=== PATIENT | female | born 1960 | race Caucasian/White ===

== ENCOUNTER 2018-09-28 06:52 | Day surgery (SDC) | payer OTHER ==
[~2018-09-28 06:52] MED LIST: BL ASPIRIN325 MG PO; CARVEDILOL12.5 MG PO; CLOPIDOGREL75 MG PO; FLEXERIL PO; LIPITOR80 M1 PO; LISINOPRIL5 MG PO; LORTAB 5 PO; METFORMIN HCL1000 MG PO; METFORMIN500 M2 PO; NAPROSYN500 MG OR; NAPROSYN500 MG PO; PROTONIX40 M2 PO; SG ASA LOW81 M1 PO; ZESTRIL10 M1 PO
[2018-09-28 08:41] VITALS: BP 144/75
== END 2018-09-28 08:50 | disposition home or self-care (01) | DRG 951 ==
LOC: ENDO 06:52
PROVIDERS: ATTEND Surgery
PROC: 0DJD8ZZ Inspection of Lower Intestinal Tract, Via Natural or Artificial Opening Endoscopic (ICD-10-PCS; principal; 2018-09-28)
DX: Z12.11 Encounter for screening for malignant neoplasm of colon (principal); K57.30 Diverticulosis of large intestine without perforation or abscess without bleeding; I25.10 Atherosclerotic heart disease of native coronary artery without angina pectoris; E11.9 Type 2 diabetes mellitus without complications; I10 Essential (primary) hypertension

== ENCOUNTER 2020-12-26 12:53 | Observation (INO) | payer OTHER ==
[~2020-12-26] VITALS: Ht 170.2 cm; Wt 86.0 kg
--- NOTE | 2020-12-26 14:00 | NUR ---
PATIENT FOUNDING SITTING ON SIDE OF BED, TALKING ON HER CELL PHONE. DENIES ANY NEEDS CURRENTLY.
[2020-12-26 14:14] LABS: HEMATOCRIT 35.1 % (37.0-47.0); IMMATURE GRANULOCYTES 0.5 % (0.0-5.0); MEAN CELL VOLUME 88.6 fL CALC (80.0-100.0); MEAN CORPUSCULAR HGB 27.8 pG CALC (26.0-32.0); MEAN CORPUSCULAR HGB CONC 31.3 g/dL CAL (32.0-36.0); NEUT# 4.74 thou/uL (2.00-7.15); RED BLOOD COUNT 3.96 mill/uL (4.20-5.60); RED CELL DISTRI WIDTH 13.3 % (11.5-15.5)
[2020-12-26 14:15] LABS: ALKALINE PHOSPHATASE 59 u/l (38-126); AMYLASE 46 u/l (30-110); ANION GAP 15 (6-22 (CALC)); BILIRUBIN, TOTAL 0.2 mg/dL (0.0-1.4); BUN 10 mg/dL (7-17); BUN/CREATININE RATIO 15 (12-20 (CALC)); CARBON DIOXIDE 21 mmol/l (22-30); CHLORIDE 104 mmol/l (95-108); CREATININE 0.7 mg/dL (0.5-1.0); GFR > 60 ML/MIN (>=60 (CALC)); GFR FOR AFR.AMER. > 60 ML/MIN (>=60 (CALC)); LIPASE 93 u/l (23-300); POTASSIUM 3.7 mmol/l (3.5-5.1); SGOT/AST 40 u/l (14-36); SODIUM 137 mmol/l (137-146); TOTAL PROTEIN 6.9 g/dL (6.3-8.2)
[2020-12-26 14:37] LABS: URINE BILIRUBIN - DIPSTICK NEGATIVE (NEGATIVE); URINE BLOOD DIPSTICK NEGATIVE (NEGATIVE); URINE COLOR YELLOW; URINE GLUCOSE - DIPSTICK NEGATIVE (NEGATIVE); URINE KETONE NEGATIVE (NEGATIVE); URINE LEUK ESTERASE NEGATIVE (NEGATIVE); URINE PROTEIN - DIPSTICK NEGATIVE (NEG-TRACE); URINE SPECIFIC GRAVITY <=1.005; URINE UROBILINOGEN - DIPSTICK 0.2 E.U./dL (0.2)
[2020-12-26 14:41] LABS: URINE NITRITE - DIPSTICK NEGATIVE (Negative)
--- NOTE | 2020-12-26 16:50 | NUR ---
PATIENT FOUND SITTING BEDSIDE, STATES SHE DOSE NOT WANT TO BE IN THE BED, SHE WANTS TO GO HOME. PATIENT ASKED TO DISCUSSE WITH ED PHYSICIAN PRIOR TO SIGNING AMA FORM
--- NOTE | 2020-12-26 17:10 | NUR ---
AT THIS TIME PATIENT AGREES TO ADMISSION.
--- NOTE | 2020-12-26 18:32 | NUR ---
RECIEVED REPORT FROM ROMI SILVA
--- NOTE | 2020-12-26 18:33 | NUR ---
REPORT CALLED TO FLOOR
[2020-12-26 18:44] VITALS: BP 120/62
--- NOTE | 2020-12-26 20:00 | NUR ---
RECEIVED PATIENT TO ROOM 267 VIA W/C FROM THE ED IN STABLE CONDITION. ON TELEMETRY. RESPIRATIONS NONLABORED. ON TELEMETRY. ORIENTED TO ROOM AND CALL LIGHT SYSTEM. IVF INITIATED. ADMISSION COMPLETED AND CHARTED. BED IN LOW POSITION. CALL LIGHT WITHIN REACH.
[2020-12-27] VITALS: BP 121/66
--- NOTE | 2020-12-27 02:09 | NUR ---
NO CHANGES EXCEPT BACK/SHOULDER PAIN GONE. PAIN 0/10. BED IN LOW POSITION. CALL LIGHT WITHIN REACH.
[2020-12-27 04:00] VITALS: BP 107/55
--- NOTE | 2020-12-27 04:33 | NUR ---
RESTING QUIETLY. NO PAIN. RESPIRATIONS NONLABORED. FALL PRECAUTIONS MAINTAINED.
[2020-12-27 06:21] LABS: HEMATOCRIT 32.3 % (37.0-47.0); HEMOGLOBIN 10.2 g/dl (12.0-16.0); MEAN CELL VOLUME 89.7 fL CALC (80.0-100.0); MEAN CORPUSCULAR HGB 28.3 pG CALC (26.0-32.0); MEAN CORPUSCULAR HGB CONC 31.6 g/dL CAL (32.0-36.0); RED BLOOD COUNT 3.6 mill/uL (4.20-5.60); RED CELL DISTRI WIDTH 13.5 % (11.5-15.5)
[2020-12-27 06:35] LABS: ANION GAP 10 (6-22 (CALC)); BUN 10 mg/dL (7-17); BUN/CREATININE RATIO 15 (12-20 (CALC)); CALCULATED LDLCHOLESTEROL 89 mg/dL (62-129 (CALC)); CARBON DIOXIDE 24 mmol/l (22-30); CHLORIDE 109 mmol/l (95-108); CHOLESTEROL HDL RATIO 4.5 (<4.4 (CALC)); CREATININE 0.7 mg/dL (0.5-1.0); GFR > 60 ML/MIN (>=60 (CALC)); GFR FOR AFR.AMER. > 60 ML/MIN (>=60 (CALC)); HDL CHOLESTEROL 35 mg/dL (>=40); MAGNESIUM 1.8 mg/dL (1.6-2.3); POTASSIUM 4.1 mmol/l (3.5-5.1); SODIUM 139 mmol/l (137-146); TOTAL CHOLESTEROL 157 mg/dl (0-199); TOTAL TRIGLYCERIDES 168 mg/dl (30-149); VLDL CHOLESTROL 34 mg/dl (2-49 (CALC))
--- NOTE | 2020-12-27 07:00 | NUR ---
RECIEVED REPORT FROM ROMI BARRAGAN
[2020-12-27 07:59] VITALS: BP 126/65
--- NOTE | 2020-12-27 07:59 | NUR ---
PT RESTING IN SEMI FOWLERS POSITION. PT IS A/O X3. ASSESSMENT AND VITALS COMPLETED. BP 126/65, HR 65, O2 99% ON ROOM AIR. RESPIRATIONS ARE EVEN AND UNLABORED WITH NO DISTRESS NOTED. LUNG SOUNDS ARE CLEAR. HEART RHYTHM IS NORMAL WITH TELE IN PLACE, SR PER ER MONITORING. BOWEL SOUNDS ARE ACTIVE. RADIAL AND PEDAL PULSES STRONG. #20G LAC INFUSING WITH IVF PER ORDER, SITE REMAINS HEALTHY AND PATENT. SKIN INTACT. PT DENIES OF ANY PAINS OR DISCOMFORTS AT THIS TIME. ALL SAFETY PRECAUTIONS ARE IN PLACE WITH CALL LIGHT IN REACH. WILL CONTINUE TO MONITOR.
--- NOTE | 2020-12-27 09:40 | NUR ---
DR DENNEY AT BEDSIDE
--- NOTE | 2020-12-27 09:55 | NUR ---
PT TRANSFERED TO CT VIA WHEELCHAIR IN STABLE CONDITON ACCOMPAINED BY [facility] STAFF
--- NOTE | 2020-12-27 10:10 | NUR ---
PT BACK TO ROOM 267 INSTABLE CONDITION. PT ASSISTED BACK INTO BED. PT INFORMED OF POSSIBLE DC
[2020-12-27 11:13] VITALS: BP 126/69
--- NOTE | 2020-12-27 12:16 | NUR ---
PT EDUCATED ON DC INSTRUCTIONS. PT VERBALZIED UNDERSTANDING. IV REMOVED WITH CATH STILL INTACT. TRANSPORTATION CALLED.
--- NOTE | 2020-12-27 12:38 | NUR ---
Discharge instructions given. Patient verbalizes understanding of same. Discharged in stable condition via Wheelchair to Home with staff. All belongings sent with pt. PT DC HOME IN STABLE CONDITION VIA WHEELCHAIR ACCOMPAINED BY PENNY KENYON WITH ALL BELONGINGS AND HOME MEDICATIONS.
== END 2020-12-27 12:39 | disposition home or self-care (01) | DRG 313 ==
LOC: ED 12:53 → ED-I 16:40 → ED 17:04 → MS2 17:05
PROVIDERS: Family Medicine; Nurse Practitioner; ADMIT Internal Medicine; ATTEND Internal Medicine
DX: R07.9 Chest pain, unspecified (principal); I25.10 Atherosclerotic heart disease of native coronary artery without angina pectoris; I10 Essential (primary) hypertension; E78.5 Hyperlipidemia, unspecified; K21.9 Gastro-esophageal reflux disease without esophagitis; I25.2 Old myocardial infarction; F17.200 Nicotine dependence, unspecified, uncomplicated; T46.3X6A Underdosing of coronary vasodilators, initial encounter; Z91.128 Patient's intentional underdosing of medication regimen for other reason; Z79.02 Long term (current) use of antithrombotics/antiplatelets; Z95.5 Presence of coronary angioplasty implant and graft; Z82.49 Family history of ischemic heart disease and other diseases of the circulatory system; Z79.82 Long term (current) use of aspirin; Z20.822 Contact with and (suspected) exposure to COVID-19
CPT/HCPCS: G0378; J1650; Q9967

== ENCOUNTER 2021-06-01 11:43 | Emergency (ER) | payer OTHER ==
[~2021-06-01] VITALS: Ht 170.2 cm; Wt 85.0 kg
[2021-06-01] MEDS ORDERED: FENOFIBRATE145 MG PO (12:01)
[2021-06-01] MEDS ORDERED: METFORMIN HCL1000 MG PO (12:03)
[2021-06-01 12:14] LABS: HEMATOCRIT 38.3 % (37.0-47.0); HEMOGLOBIN 12.5 g/dl (12.0-16.0); IMMATURE GRANULOCYTES 0.4 % (0.0-5.0); MEAN CELL VOLUME 85.5 fL CALC (80.0-100.0); MEAN CORPUSCULAR HGB 27.9 pG CALC (26.0-32.0); MEAN CORPUSCULAR HGB CONC 32.6 g/dL CAL (32.0-36.0); NEUT# 2.98 thou/uL (2.00-7.15); RED BLOOD COUNT 4.48 mill/uL (4.20-5.60); RED CELL DISTRI WIDTH 14.1 % (11.5-15.5)
[2021-06-01 12:25] LABS: ALBUMIN 4.2 g/dL (3.2-5.0); ALKALINE PHOSPHATASE 67 u/l (38-126); ANION GAP 13 (6-22 (CALC)); BUN 14 mg/dL (7-17); BUN/CREATININE RATIO 19 (12-20 (CALC)); CARBON DIOXIDE 24 mmol/l (22-30); CHLORIDE 104 mmol/l (95-108); CREATININE 0.7 mg/dL (0.5-1.0); GFR > 60 ML/MIN (>=60 (CALC)); GFR FOR AFR.AMER. > 60 ML/MIN (>=60 (CALC)); POTASSIUM 3.8 mmol/l (3.5-5.1); SGOT/AST 48 u/l (14-36); SODIUM 137 mmol/l (137-146); TOTAL PROTEIN 7.5 g/dL (6.3-8.2)
[2021-06-01 12:30] LABS: BILIRUBIN, TOTAL 0.5 mg/dL (0.0-1.4)
[2021-06-01 13:40] VITALS: BP 120/59
== END 2021-06-01 13:40 | disposition short-term general hospital (02) | DRG 303 ==
LOC: ED 11:43
PROVIDERS: Family Medicine
DX: I25.110 Atherosclerotic heart disease of native coronary artery with unstable angina pectoris (principal); I10 Essential (primary) hypertension; E11.9 Type 2 diabetes mellitus without complications; I25.2 Old myocardial infarction; E78.5 Hyperlipidemia, unspecified; Z95.5 Presence of coronary angioplasty implant and graft; Z79.84 Long term (current) use of oral hypoglycemic drugs